=== PATIENT | male | born 1965 | race Caucasian/White ===

== ENCOUNTER → 2019-10-14 | Outpatient (CLI) | payer OTHER ==
--- NOTE | 2019-10-14 13:53 | PCVCIMAG ---
APPROVED REPORT Study performed: 10/14/2019 11:09:26 Exam: Stress Echocardiogram Indication: Hypertension, Hyperlipidemia Patient Location: Echo lab Stress Nurse: Georgina Peoples RN Status: routine Ht: 6 ft 0 in HR: 97 bpm BP: 120/100 mmHg Rhythm: NSR Medical History Medical History: Dilated Ascending Aorta Procedure The patient underwent an Exercise Stress Test using the Saurav Protocol. Blood pressure, heart rate, and EKG were monitored. An Echocardiogram was performed by cable television line technician in four stages in quad fashion. At peak stress, four selected images were obtained and placed side by side with resting images for comparison. Stress Test Details Stress Test: Exercise stress testing was performed using a Saurav protocol. HR Resting HR: 97 bpmMax Heart Rate (APMHR): 167 bpm Max HR Achieved: 181 bpmTarget HR (85% APMHR): 141 bpm % of APMHR: 108 Recovery HR: 121 bpm HR response to stress: Normal HR response to stress BP Resting BP: 120/100 mmHg Max BP: 190/88 mmHg Recovery BP: 182/78 mmHg BP response to stress: Normal blood pressure response to stress. ECG Resting ECG: Sinus Rhythm Stress ECG: Sinus Rhythm Recovery ECG: Sinus Rhythm Clinical Reason for Termination: Maximal effort Exercise duration: 13 min 09 sec Highest Stage Achieved: Stage 4: 4.2 mph at 16% grade. Exercise capacity: 17.20 METs Overall Exercise Capacity for Age: Good Pre-Stress Echo The resting Echocardiogram showed normal left ventricular contractility with an estimated Ejection Fraction of about 55-60%. Normal wall motion in all segments on baseline images. Post-Stress Echo The stress Echocardiogram showed normal left ventricular contractility with an estimated Ejection Fraction of about 60-65%. Normal augmentation of wall motion in all segments on post stress images. Clinical No clinical or ECG evidence for ischemia. Conclusion Clinical Response: Non-ischemic Exercise Capacity: Superior Stress ECG Response: Non-ischemic Stress Echo Images: Non-ischemic The left ventricle is normal in size and wall thickness in both the rest and stress images. Ascending Aorta measures 4.4cm. Trace mitral and tricuspid regurgitation. Other Information Study Quality: Adequate <Conclusion> The left ventricle is normal in size and wall thickness in both the rest and stress images. Ascending Aorta measures 4.4cm. Trace mitral and tricuspid regurgitation.
== END | disposition home or self-care (01) ==
LOC: PCVCIMAG 10:59
PROVIDERS: ATTEND Internal Medicine Cardiovascular Disease
DX: I10 Essential (primary) hypertension (principal); E78.5 Hyperlipidemia, unspecified; K21.9 Gastro-esophageal reflux disease without esophagitis; I25.10 Atherosclerotic heart disease of native coronary artery without angina pectoris; F41.9 Anxiety disorder, unspecified
CPT/HCPCS: 93325; 93351